=== PATIENT | female | born 1965 | race Caucasian/White ===

== ENCOUNTER 2021-09-16 17:17 | Emergency (ER) | payer OTHER ==
[~2021-09-16] VITALS: Ht 167.6 cm; Wt 63.5 kg
[2021-09-16 17:41] VITALS: BP_SYST 150
--- NOTE | 2021-09-16 17:48 | NUR ---
Patient triaged and placed in waiting room. VSS and patient appears in no acute distress at this time. Accompanied by BLS , awaiting available bed, and MD notified of need for MSE.
[2021-09-16 18:34] LABS: BASOPHILS % (AUTO) 0.2 % (0.0-2.0); HEMATOCRIT 39.2 % (36-48); HEMOGLOBIN 13.4 g/dL (12.0-16.0); LYMPHOCYTES % (AUTO) 10.1 % (20.5-51.5); MEAN CORPUSCULAR HEMOGLOBIN 32 pg (27-31); MEAN CORPUSCULAR HGB CONC 34 % (32-36); MEAN CORPUSCULAR VOLUME 94 fL (79.0-98.0); MONOCYTES # (AUTO) 1.5 K/uL (0.0-1.0); MONOCYTES % (AUTO) 15.5 % (1.7-9.3); NEUTROPHILS # (AUTO) 7.3 K/uL (1.8-7.7); NEUTROPHILS % (AUTO) 74.2 % (40.0-70.0); PLATELET COUNT (AUTO) 103 K/uL (130-430); RED BLOOD CELL COUNT(AUTO) 4.17 MIL/uL (4.2-6.2); RED CELL DISTRIBUTION WIDTH 13.9 % (9.0-15.0); WHITE BLOOD COUNT (AUTO) 9.8 K/uL (4.8-10.8)
[2021-09-16 18:46] LABS: ALBUMIN 2.5 g/dL (3.4-4.8); CALCIUM 8.9 mg/dL (8.4-11.0); CREATININE 0.77 mg/dL (0.55-1.30); POTASSIUM 3.7 mmol/L (3.5-5.1); TOTAL BILIRUBIN 0.9 mg/dL (0.0-1.0)
--- NOTE | 2021-09-16 19:15 | NUR ---
[facility] # [id number]. REPORT FROM EMT. PT TRANSFERRED FROM [facility] FOR C/O ABD PAIN X1 DAY. C/O N/V EARLIER TODAY.D/C FROM [facility] YESTERDAY FOR LEFT TIB/FIB FX. ARRIVED IN SOFT SPLINT TO LEFT LE. LEFT FOOT WARM TO TOUCH WITH GOOD PEDAL PULSES PALP.. PT HAS HX OF BIPOLAR, SCHIZOPHRENIA, PARKINSON'S. PT A/OX2, ANSWERS TO NAME ONLY. VSS
--- NOTE | 2021-09-16 20:18 | NUR ---
SERGIO [id number] BUCIO PLACED AND MAXIMO, CLEAR URINE RETURNED. STERILE UA COLLECTED AND SENT TO LAB.
[2021-09-16 20:42] LABS: BILIRUBIN,URINE NEGATIVE (NEGATIVE); BLOOD, URINE 1+ (NEGATIVE); CLARITY/URINE CLEAR (CLEAR); GLUCOSE,URINE NEGATIVE (NEGATIVE); KETONES,URINE 1+ (NEGATIVE); LEUKOCYTE ESTERASE ,URINE NEGATIVE (NEGATIVE); NITRITE, URINE NEGATIVE (NEGATIVE); PROTEIN URINE TRACE (NEGATIVE)
[2021-09-16 20:43] LABS: COLOR,URINE AMBER (YELLOW)
[2021-09-16 20:44] LABS: BACTERIA,URINE FEW /HPF (None Seen); MUCUS,URINE None Seen /LPF (None Seen); RBC,URINE 0-3 /HPF (0-3); WBC,URINE 0-3 /HPF (0-3)
[2021-09-16] MEDS ORDERED: SUCRALFATE 1 GM TABLET PO ONE (21:30)
[2021-09-16] MEDS ORDERED: MORPHINE 4 MG INJ. 4 MG/ML VIAL IM ONE (21:30)
[2021-09-16] MEDS ORDERED: FAMOTIDINE 20 MG TABLET PO ONE (21:30)
[2021-09-16] MEDS ORDERED: FAMO20TA8 PO (21:49)
[2021-09-16] MEDS ORDERED: SUCR1TAB78 PO (21:49)
[2021-09-16] MEDS ORDERED: SUCRALFATE 1 GM/10 ML UDC ONE (21:59)
--- NOTE | 2021-09-16 22:07 | NUR ---
ALESSIO HILL ADMIN MEENU CALLED FROM [employer], [facility]. [address] [place] [address] [facility] [place] [phone]. [facility] WILL SEND TRANSPORT FOR PT'S DISCHARGE BACK TO THEIR FAC[facility]ITY.
[2021-09-16 23:23] VITALS: BP_SYST 107
--- NOTE | 2021-09-16 23:24 | NUR ---
SERGIO, RN PT D/C TO [employer] INTO [facility] WITH ALL PAPERWORK. PT TO CAR VIA W/C WITH 2 RN'S AND PIPING DESIGNER. PT STABLE FOR DISHARGE.
== END 2021-09-16 23:23 | disposition home or self-care (01) ==
LOC: SED 17:17
DX: K29.70 Gastritis, unspecified, without bleeding (principal); K59.00 Constipation, unspecified; K80.20 Calculus of gallbladder without cholecystitis without obstruction; K57.90 Diverticulosis of intestine, part unspecified, without perforation or abscess without bleeding; R10.13 Epigastric pain; R11.2 Nausea with vomiting, unspecified; I10 Essential (primary) hypertension; Z79.899 Other long term (current) drug therapy
CPT/HCPCS: 99284; 74176; 80053; 81000; 83690; 85025; 36415; 76376; 96372; J2270

== ENCOUNTER 2021-11-19 14:44 | Emergency (ER) | payer OTHER ==
[~2021-11-19] VITALS: Ht 162.6 cm; Wt 56.7 kg
[~2021-11-19 14:44] MED LIST: FAMO20TA8 PO; SUCR1TAB78 PO
[2021-11-19 14:45] VITALS: BP_SYST 117
--- NOTE | 2021-11-19 15:30 | NUR ---
pt brought by ambulance, A&Ox1,pt is mentaly disable, pt presents to ER with R upper abdominal pain, no N/V noted, skin pink and warm, cap refill <3, VSS, will cont to monitor,
--- NOTE | 2021-11-19 15:45 | NUR ---
Dr Sunshine evaluating patient at bedside
--- NOTE | 2021-11-19 16:12 | NUR ---
Dr Sunshine evaluating patient at bedside
--- NOTE | 2021-11-19 16:19 | NUR ---
# 22 gauge angiocath placed to LAC. Use of asceptic technique. Opsite placed over site. Blood return noted. Blood for lab drawn from site. Flushed with 10 cc of normal saline. No evidence of infiltration noted. Patient tolerated well.
--- NOTE | 2021-11-19 16:19 | NUR ---
Pt requests [facility] provided bedpan. No issue.
--- NOTE | 2021-11-19 16:25 | NUR ---
Pt off the unit for CT
[2021-11-19 16:28] LABS: MONOCYTES % (AUTO) 15.3 % (1.7-9.3); WHITE BLOOD COUNT (AUTO) 6.3 K/uL (4.8-10.8)
--- NOTE | 2021-11-19 16:34 | NUR ---
Pt returning from CT on stable condition
[2021-11-19 16:39] LABS: BASOPHILS % (AUTO) 0.5 % (0.0-2.0); EOSINOPHILS % (AUTO) 0.5 % (0.0-4.0); HEMATOCRIT 37.9 % (36-48); LYMPHOCYTES # (AUTO) 1.6 K/uL (1.0-5.5); LYMPHOCYTES % (AUTO) 25.2 % (20.5-51.5); MEAN CORPUSCULAR VOLUME 96 fL (79.0-98.0); NEUTROPHILS # (AUTO) 3.7 K/uL (1.8-7.7); NEUTROPHILS % (AUTO) 58.5 % (40.0-70.0); PLATELET COUNT (AUTO) 72 K/uL (130-430); RED BLOOD CELL COUNT(AUTO) 3.94 MIL/uL (4.2-6.2); RED CELL DISTRIBUTION WIDTH 14.4 % (9.0-15.0)
[2021-11-19 16:41] LABS: ANION GAP 6 (5-15); CALCIUM 9.1 mg/dL (8.4-11.0); CHLORIDE 108 mmol/L (98-107); CREATININE 0.94 mg/dL (0.55-1.30); GLUCOSE 93 mg/dL (70-99); POTASSIUM 3.5 mmol/L (3.5-5.1); UREA NITROGEN, BLOOD 20 mg/dL (8-21)
[2021-11-19 16:50] LABS: BILIRUBIN,URINE NEGATIVE (NEGATIVE); BLOOD, URINE NEGATIVE (NEGATIVE); GLUCOSE,URINE NEGATIVE (NEGATIVE); KETONES,URINE TRACE (NEGATIVE); LEUKOCYTE ESTERASE ,URINE NEGATIVE (NEGATIVE); NITRITE, URINE NEGATIVE (NEGATIVE); PROTEIN URINE NEGATIVE (NEGATIVE)
[2021-11-19 16:57] LABS: ALANINE AMINOTRANSFERASE 17 U/L (12-78); ALBUMIN 2.5 g/dL (3.4-4.8); ASPARTATE AMINOTRANSFERASE 32 U/L (10-37); CLARITY/URINE SLIGHTLY HAZY (CLEAR); COLOR,URINE AMBER (YELLOW); LIPASE 36 U/L (73-393); TOTAL BILIRUBIN 0.6 mg/dL (0.0-1.0)
[2021-11-19 17:12] LABS: GFR AFRICAN AMERICAN 79 mL/min (>90)
[2021-11-19 17:33] LABS: ACETAMINOPHEN 2 ug/mL (1-30)
--- NOTE | 2021-11-19 17:34 | NUR ---
Pt caregiver Lakshmi requests updates on status to [phone]. Call for transportation until 8pm; call ambulance for transport after 8pm.
[2021-11-19 18:01] LABS: ALCOHOL, BLOOD < 3 mg/dL (<10)
[2021-11-19 18:05] LABS: BARBITURATE, URINE NEGATIVE (NEG <=200); BENZODIAZEPINE, URINE NEGATIVE (NEG <=150); CANNABINOID, URINE NEGATIVE (NEG <=50); COCAINE, URINE NEGATIVE (NEG <=150); METHAMPHETAMINES SCREEN,URINE NEGATIVE (NEG <=500); OPIATE, URINE NEGATIVE (NEG <=100); PHENCYCLIDINE SCREEN,URINE NEGATIVE (NEG <=25); UR TRICYCLIC ANTIDEPRESSANTS NEGATIVE (NEG <=300); URINE AMPHETAMINE NEGATIVE (NEG <=500); URINE METHADONE NEGATIVE (NEG <=200); URINE OXYCODONE SCREEN NEGATIVE (NEG <=100); URINE PROPOXYPHENE SCREEN NEGATIVE (NEG <=300)
--- NOTE | 2021-11-19 19:18 | NUR ---
Report given to Monalisa MCCALLUM
[2021-11-19 19:32] VITALS: BP_SYST 112
--- NOTE | 2021-11-19 19:33 | NUR ---
Patient given written and verbal discharge instructions and verbalizes understanding. ER MD discussed with patient the results and treatment provided. Patient in stable condition. ID arm band removed. NO Rx given. Patient educated on pain management and to follow up with PMD. Pain Scale 0/10. Opportunity for questions provided and answered. Medication side effect fact sheet provided.
== END 2021-11-19 19:32 | disposition home or self-care (01) ==
LOC: SED 14:44
DX: G93.40 Encephalopathy, unspecified (principal); F03.90 Unspecified dementia, unspecified severity, without behavioral disturbance, psychotic disturbance, mood disturbance, and anxiety; R10.9 Unspecified abdominal pain; R07.9 Chest pain, unspecified; Z79.899 Other long term (current) drug therapy
CPT/HCPCS: 99285; 70450; 71045; 80307; 80053; 83690; 85025; 84484; 36415; 93005; 76376; 74176; 81003; G0482; G0480; G0481